=== PATIENT | female | born 1960 | race Caucasian/White ===

== ENCOUNTER → 2016-12-25 | Outpatient (CLI) | payer OTHER ==
[~2016-12-25] MED LIST: ANTIVERT PO; ATARAX PO; ATIVAN PO; BENADRYL A12.5 MG/2 PO; CORGARD PO; CORGARD40 MG PO; CORTIZONE-528 GM TOP; DIAZEPAM PO; FISH OIL 1,0001 CAP PO; FLEXERIL10 M1 PO; FLEXERIL10 MG PO; KLONOPIN PO; LORATADINE PO; MEDROL PO; MOTRIN600 M1 PO; NADOLOL40 MG PO; NAPROSYN500 MG PO; PAXIL PO; PEPCID AC20 M2 PO; PHENERGAN PR; PREDNISONE PO; PROPRANOLOL HCL20 MG PO; ROBAXIN500 MG PO; VOLTAREN50 MG PO
[2016-12-25 14:20] LABS: HEMATOCRIT 42.5 % (35.0-45.0); HEMOGLOBIN 14.4 gm/dL (12.0-16.0); MEAN CELL VOLUME 89.6 FL (83-96); MEAN CORPUSCULAR HEMOGLOBIN 30.3 PG (28-34); MEAN CORPUSCULAR HGB CONC 33.8 g/dL (30-36); MEAN PLATELET VOLUME 8.3 FL (6.5-11.5); RED BLOOD COUNT 4.75 X10e (3.90-5.30); WHITE BLOOD COUNT 6.3 X10e3 (4.0-10.5)
[2016-12-25 14:34] LABS: CREATININE SERUM 0.6 mg/dL (0.6-1.4); GLOM FILT RATE Estimated 101.2 mL/min (>60)
== END | disposition home or self-care (01) ==
LOC: SLAB 14:05
DX: Z51.81 Encounter for therapeutic drug level monitoring (principal); L40.50 Arthropathic psoriasis, unspecified; Z79.899 Other long term (current) drug therapy
CPT/HCPCS: 36415; 82565; 84450; 84460; 85027

== ENCOUNTER → 2017-03-11 | Outpatient (CLI) | payer OTHER ==
--- NOTE | ~2017-03-11 | MY26 ---
[facility] A Service of [facility] RADIOLOGY TEXT RESULTS PATIENT: HALLE HILLIARD LOCATION: [facility] : 58 UNIT #: [id number] AGE: [address]: Katharine Melara SEX: F ORDER DR: [id number] [facility] [address] [place], [place] [address] [id number] O MR#: [id number] Acc #: [id number] NAME: HALLE HILLIARD. : 1960 SEX: F STUDY DATE/TIME: 03/11/2017 14:38 UNIT: [facility] ROOM: STUDY DESCRIPTION: [facility] DIAGNOSTIC W/ CAD BILAT Attending Physician: Katharine Melara A.P.R.N. Referring Physician: Katharine Melara A.P.R.N. Ordering Physician: Katharine Melara A.P.R.N. Primary Care Physician: Julio Damian M.D. MEDICAL IMAGING REPORT This report is preliminary unless electronic signature is present REVISED REPORT SEE ADDENDUM EXAM Bilateral digital diagnostic mammogram with CAD COMPARISON None available. Patient states that she may have had prior mammograms performed at [facility] and at [facility]. Per our technologist, [facility] does not have prior mammograms for this patient, but we will try to obtain priors from [facility]. INDICATIONS 56-year-old female, without current complaint, presenting for diagnostic mammography given history of fibrocystic breasts and multiple prior call-backs on screening mammography. The patient currently denies complaints and denies personal or family history of breast cancer. FINDINGS There are scattered fibroglandular densities. There are no suspicious findings in either breast. However, as a precaution, comparison to possible available outside mammograms is recommended to document stability of the mammographic pattern. If no comparisons can be obtained, this will serve as the patient's effective baseline mammogram and screening mammography would be recommended in a year. Findings were discussed with the patient. IMPRESSION No mammographic evidence of malignancy. However, comparison with outside imaging (if available) is recommended to document stability of the mammographic pattern. An addendum will be performed after attempting to retrieve prior mammograms. Patients over the age of 40 are entered into a reminder system with target STS. [facility] A Service of [facility] RADIOLOGY TEXT RESULTS PATIENT: HALLE HILLIARD LOCATION: [facility] : 58 UNIT #: [id number] AGE: [address]: Katharine Melara SEX: F ORDER DR: due date for the next mammogram. A result letter will also be sent to the patient. BIRADS: 0 Need Additional Imaging Evaluation and/or Prior Mammograms For Evaluation Dictated by... Tim Leal M.D. THIS IS AN ELECTRONICALLY VERIFIED REPORT Tim Leal M.D. at 03/16/2017 12:05 PM RUT/evin TD: 03/11/2017 21:41 JOB #: [id number] ADDENDUM Prior outside mammograms performed at [facility] and [facility] have been destroyed. This will therefore serve as the patient's effective baseline screening mammogram. IMPRESSION No mammographic evidence of malignancy. Annual screen mammography and clinical breast exam are recommended. BIRADS: 1 - negative Dictated by... Tim Leal M.D. THIS IS AN ELECTRONICALLY VERIFIED REPORT Tim Leal M.D. at 03/22/2017 10:16 PM Alex TD: 03/17/2017 13:43 JOB #: [id number] CC: Sovera/invision Please Delete MEDICAL IMAGING REPORT Page 1 of 1 COPY
== END | disposition home or self-care (01) ==
LOC: CMAM 03-10 10:30
DX: N60.19 Diffuse cystic mastopathy of unspecified breast (principal)
CPT/HCPCS: G0204